=== PATIENT | female | born 1985 | race Caucasian/White ===

== ENCOUNTER 2017-04-07 14:25 | Emergency (ER) | payer MEDICAID ==
[~2017-04-07] VITALS: Ht 172.7 cm; Wt 68.0 kg
--- NOTE | 2017-04-07 14:45 | NUR ---
PATIENT WAS SEEN BY MD FOR C/O NAUSEA AND VOMITING. STATES SHE WANTS PAIN MEDICINE, DR BANUELOS AWARE.
[2017-04-07] MEDS ORDERED: IV NORMAL SALINE 500 ML BAG IV ONE (15:00)
[2017-04-07] MEDS ORDERED: METRONIDAZOLE 500 MG TABLET PO ONE (15:00)
[2017-04-07 15:07] LABS: BASOPHILS % (AUTO) 0.4 % (0.0-2.0); EOSINOPHILS # (AUTO) 0.3 K/uL (0.0-0.7); EOSINOPHILS % (AUTO) 2.6 % (0.0-7.0); HEMATOCRIT 35.3 % (37-47); HEMOGLOBIN 11.6 G/DL (12.0-16.0); LYMPHOCYTES # (AUTO) 3.4 K/UL (0.8-4.8); LYMPHOCYTES % (AUTO) 34.1 % (20.5-51.5); MEAN CORPUSCULAR HEMOGLOBIN 25.3 UUG (27.0-31.0); MEAN CORPUSCULAR HGB CONC 33 g/dL (32.0-37.0); MEAN CORPUSCULAR VOLUME 77.2 FL (81.0-99.0); MONOCYTES # (AUTO) 0.9 K/UL (0.1-1.30); MONOCYTES % (AUTO) 9.6 % (0.0-11.0); NEUTROPHILS # (AUTO) 5.2 K/UL (1.8-8.9); NEUTROPHILS % (AUTO) 53.3 % (38.5-71.5); PLATELET COUNT (AUTO) 321 K/UL (150-450); RED BLOOD CELL COUNT(AUTO) 4.57 MIL/UL (4.2-5.4); WHITE BLOOD COUNT (AUTO) 9.8 K/UL (4.0-11.2)
[2017-04-07] MEDS ORDERED: METRONIDAZOLE 500 MG TABLET ONE (15:13)
[2017-04-07 15:16] LABS: CREATININE 0.9 mg/dL (0.6-1.3); POTASSIUM 3.7 mmol/L (3.5-5.1)
[2017-04-07 15:21] LABS: BILIRUBIN,DIRECT 0.1 mg/dL (0.0-0.2); BILIRUBIN,TOTAL 0.3 mg/dL (0.2-1.0); TOTAL PROTEIN, SERUM 7.1 g/dL (6.4-8.2)
--- NOTE | 2017-04-07 15:45 | NUR ---
MEDS GIVEN ORDERED. PATIENT IS NOT VOMITING AND NO DIARRHEA NOTED THUS FAR. IV FLUIDS COMPLETED. IV DC'D, CATHETER TIP INTACT, PRESSURE APPLIED, DRESSING APPLIED.
--- NOTE | 2017-04-07 15:56 | NUR ---
DC, RX AND FOLLOW UP INSTRUCTIONS GIVEN AND EXPLAINED TO PT WHO STATES SHE UNDERSTANDS ALL INSTRUCTIONS.
--- NOTE | 2017-04-07 16:00 | NUR ---
PATIENT STATES SHE IS GOING TO "[facility]" TODAY.
== END 2017-04-07 16:09 | disposition home or self-care (01) ==
LOC: ER 14:25
DX: K52.9 Noninfective gastroenteritis and colitis, unspecified (principal)
CPT/HCPCS: 36415; 85025; A4663; J7040